=== PATIENT | female | born 1995 | race African-American/Black ===

== ENCOUNTER 2021-05-26 12:25 | Emergency (ER) | payer OTHER, SELFPAY ==
[2021-05-26 12:26] VITALS: BP 146/94; PULSE 69; RESP 16; TEMP 37.2; O2SAT 100
--- NOTE | 2021-05-26 12:53 | ED.GENADULT ---
HPI - General Adult General Chief complaint: Syncope Stated complaint: passed out Time Seen by Provider: 05/26/21 12:34 Source: patient and RN notes reviewed Mode of arrival: ambulatory Limitations: no limitations History of Present Illness HPI narrative: 25-year-old female presented for complaint of one episode of room spinning and dizziness while she was at work. She lowered herself to the ground and did not lose consciousness. She denies injury. She states the right side of her body is tingling. 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 Endorses walking slowly and Headache. She is tearful throughout the encounter. She states I messed up at work. Everything is so hard right now. Slow to respond and appeared to forget where she lives. Denies SI/HI. Denies vision changes, n/v/d/f/c. Related Data Home Medications Medication Instructions Recorded Confirmed duloxetine [Cymbalta] 20 mg PO DAILY 05/26/21 05/26/21 fluoxetine [Prozac] 20 mg PO DAILY 05/26/21 05/26/21 Allergies Allergy/AdvReac Type Severity Reaction Status Date / Time shellfish derived AdvReac Unknown Verified 05/26/21 12:35 Review of Systems Review of Systems: CONSTITUTIONAL: Denies body aches, fever, chills, or sweats. EYES: Denies visual changes, redness, or discharge. ENT: Denies rhinorrhea, congestion, sore throat, or otalgia. CARDIOVASCULAR: Denies chest pain, palpitations, or edema. RESPIRATORY: Denies cough or dyspnea. GASTROINTESTINAL: Denies abdominal pain, nausea, vomiting, or diarrhea. GENITOURINARY: Denies dysuria or hematuria. SKIN: Denies rash, itching, or wounds. MUSCULOSKELETAL: reports Right arm pain NEUROLOGIC: Endorses headache, numbness, tingling, weakness, to RUE dizziness PSYCH: reports depression/anxiety All systems reviewed & are unremarkable except as noted in HPI and below PMFSH Comments At time of signature, I have reviewed and agree with nursing past medical, surgical, social and family history unless otherwise noted. Please see nursing chart for further information. There is no relevant family history pertinent to the presenting complaint Exam Narrative: GENERAL: Well-appearing HEAD: Normocephalic, atraumatic. EYES: PERRLA, EOMI. ENT: Mucous membranes pink and moist. No rhinorrhea. TMs normal bilaterally. NECK: Normal AROM. Supple. No lymphadenopathy. CHEST: No respiratory distress. Clear to auscultation. HEART: Regular rate and rhythm. No murmur appreciated. Normal peripheral pulses. ABDOMEN: Soft, nontender, nondistended, normal active bowel sounds. MUSCULOSKELETAL: No bony tenderness. EXTREMITIES: Right arm not used, states due to tingling and weakness, limited ROM at shoulder SKIN: Warm, dry, no rash. Capillary refill normal. Normal skin turgor. NEURO: Alert and oriented x3. EOMs intact without nystagmus. No facial droop/asymmetry noted bilaterally. Grimace intact. Diminished sensation in face to right forehead. Hearing intact bilaterally. Strength 5/5 left upper extremity, 4/5 right upper extremity; Strength 5/5 LLE; 4/5 RLE. Right patellar Reflex 1+, Left patellar Reflex 2+; Ambulatory exam with a slow steady gait. PSYCH: Tearful throughout encounter Course Course Emergency Course: Patient is aware of diagnosis, understands. she Declines ER transfer. Anticipatory guidance given. Patient agrees to follow-up as directed and is aware of reasons to seek care at the emergency department. Portions of this record may have been created with voice recognition software Level of Care: Express Care Visit Vital Signs Vital signs: Vital Signs Temperature 98.9 F 05/26/21 12:26 Pulse Rate 69 05/26/21 12:26 Respiratory Rate 16 05/26/21 12:26 Blood Pressure 146/94 H 05/26/21 12:26 Pulse Oximetry 100 05/26/21 12:26 Temperature 98.9 F
== END 2021-05-26 12:56 | disposition left against medical advice (07) ==
LOC: EXPGLEN 12:46
PROVIDERS: Emergency Provider Nurse Practitioner Family
DX: R42 Dizziness and giddiness (principal); D57.1 Sickle-cell disease without crisis; F41.9 Anxiety disorder, unspecified; F32.A Depression, unspecified
CPT/HCPCS: 99213; G0463